=== PATIENT | female | born 1935 | race Caucasian/White ===

== ENCOUNTER 2016-07-22 20:28 | Emergency (ER) | payer OTHER ==
[~2016-07-22] VITALS: Ht 160 cm; Wt 83.9 kg
[~2016-07-22 20:28] MED LIST: AMLODIPINE BESY10 M1 PO; CRESTOR10 M1 PO; FLU VACCINE 0.0.5 ML IM; LIDODERM 5% PAT1 PAT TOP; LISINOPRIL-HCT1 EAC1 PO; METOPROLOL SUCC50 MG PO; MOBIC7.5 MG PO; NAPROSYN500 M1 PO; PROTONIX 40MG T40 MG PO; TOPROL XL 25MG25 MG PO
[2016-07-22 20:45] VITALS: BP 157/73
--- NOTE | 2016-07-22 21:13 | ED GI/GU/ABDOMINAL COMPLAINT ---
History of Present Illness General Chief Complaint: Abdominal Pain/Flank Pain Stated Complaint: ABD PAIN Source: patient, family, old records Exam Limitations: language barrier Vital Signs & Intake/Output Vital Signs & Intake/Output Vital Signs Date Time Temp Pulse Resp B/P B/P Pulse O2 O2 Flow FiO2 Mean Ox Delivery Rate 07/22 2044 100.5 91 20 157/73 94 Room Air Allergies Coded Allergies: NO KNOWN ALLERGIES (04/29/13) Reconcile Medications Amlodipine Besylate 10 MG TABLET 1 TAB PO DAILY BP (Reported) Lisinopril/Hydrochlorothiazide (Lisinopril-Hctz 20-25 MG Tab) 20 MG-25 MG TABLET 1 TAB PO DAILY BP (Reported) Metoprolol Succinate 50 MG TAB.ER.24H 1 TAB PO DAILY HEART/BP (Reported) Rosuvastatin Calcium (Crestor) 10 MG TABLET 1 TAB PO DAILY CHOLESTEROL ( Reported) Triage Note: PT IS FAROESE SPEAKING, SON INTERPRETING TO ED C/O EPIGASTRIC PAIN THAT WRAPS TO RT SIDE. STARTED YESTERDAY, GOT A LITTLE BETTER, WORSE TODAY. DENIES N/V/D. [facility] OF [facility] Triage Nurses Notes Reviewed? yes LMP (ages 10-50): post menopausal ? n Is pt currently ? No Onset: yesterday Duration: day(s):, constant, continues in ED, getting worse Timing: recent history Quality/Severity: moderate, stabbing Location: epigastric Radiation: back Prior Abdominal Problems: similar symptoms Past Sexual History: Unobtainable at this time Sexually Active: No Modifying Factors: Worsens With: palpation. Associated Symptoms: abdominal pain HPI: 1 day prior to admission patient complains of epigastric pain sharp constant radiating to the right upper quadrant increasing severity. She denies fever chills nausea vomiting diarrhea chest pain cough shortness of breath headache dysuria rash bleeding. Past History Travel History Traveled to [place] past 21 day No Medical History Any Pertinent Medical History? 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 No Review of Systems Review of Systems Constitutional: Reports: no symptoms. EENTM: Reports: no symptoms. Respiratory: Reports: no symptoms. Cardiovascular: Reports: no symptoms. GI: Reports: see HPI, abdominal pain. Genitourinary: Reports: no symptoms. Musculoskeletal: Reports: no symptoms. Skin: Reports: no symptoms. Neurological/Psychological: Reports: no symptoms. Hematologic/Endocrine: Reports: no symptoms. Immunologic/Allergic: Reports: no symptoms. All Other Systems: Reviewed and Negative Physical Exam Physical Exam General Appearance: well developed/nourished, alert, awake, anxious, moderate distress, obese Head: atraumatic, normal appearance Eyes: Bilateral: normal appearance, PERRL, EOMI, normal inspection. Ears, Nose, Throat, Mouth: hearing grossly normal, moist mucous membrane Neck: normal inspection, supple, full range of motion, normal alignment Respiratory: normal breath sounds, chest non-tender, no respiratory distress, quiet respiration, lungs clear Cardiovascular: regular rate/rhythm, normal peripheral pulses, norml femoral pulses equa Peripheral Pulses: 4+ carotid (R), 4+ carotid (L) Gastrointestinal: normal bowel sounds, soft, no organomegaly, tenderness ( epigastric) Back: normal inspection, normal range of motion, no vertebral tenderness Extremities: normal range of motion, no ligament instability Neurologic/Psych: no motor/sensory deficits, awake, alert, oriented x 3, normal gait, normal mood/affect, tube handler II-XII 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 No Severe Sepsis Present: No Septic Shock Present: No Progress Differential Diagnosis: diverticulitis, gastritis, pancreatitis, PUD/GERD Plan of Care: Orders Procedure Date/time Status Add-on Test (ER Only) 07/22 2326 Active URINALYSIS 07/22 2101 Complete TROPONIN LEVEL 07/22 2101 Complete LIPASE 07/22 2101 Complete COMPREHENSIVE METABOLIC PANEL 07/22 2101 Complete CBC WITHOUT DIFFERENTIAL 07/22 2101 Complete EKG 07/23 2031 Active Laboratory Tests 07/22/162230: Urinalysis MANY H, Urine Color YEL, Urine Clarity HAZY H, Urine pH 7.0, Ur Specific Clutier 1.015, Urine Protein NEG, Urine Ketones NEG, Urine Nitrite NEG, Urine Bilirubin NEG, Urine Urobilinogen 1.0, Ur Leukocyte Esterase NEG, Ur Microscopic SEDIMENT EXAMINED, Urine RBC 1-3, Urine WBC 1-3 H, Ur Epithelial Cells RARE, Urine Bacteria FEW H, Urine Mucus RARE, Urine Hemoglobin SMALL H, Urine Glucose NEG 07/22/162108: Anion Gap 14, Estimated GFR > 60, BUN/Creatinine Ratio 20.0, Glucose 158 H, Calcium 9.6, Total Bilirubin 4.2 H, AST 906 H, ALT 519 H, Alkaline Phosphatase 233 H, Troponin I < 0.01, Total Protein 7.4, Albumin 4.7, Globulin 2.7, Albumin/Globulin Ratio 1.7, Lipase 107, CBC w Diff NO MAN DIFF REQ, RBC 4.57, MCV 89.1, MCH 30.0, RDW 13.6, MPV 8.1, Gran % 83.8 H, Lymphocytes % 9.0 L, Monocytes % 6.0, Eosinophils % 0.9, Basophils % 0.3, Absolute Granulocytes 6.5, Absolute Lymphocytes 0.7 L, Absolute Monocytes 0.5, Absolute Eosinophils 0.1, Absolute Basophils 0, PUBS MCHC 33.6 Diagnostic Imaging: Viewed by Me: Radiology Read, CT Scan. Discussed w/RAD: Radiology Read, CT Scan. Radiology Impression: No acute abnormality CT scan abdomen pelvis. Diffuse fatty change of liver. Status post cholecystectomy. Diverticulosis of colon but no acute change of the bowel. CXR Impression: no acute abnormality, no infiltrates Initial ED EKG: normal axis, normal intervals, normal p-waves, normal QRS complex, normal sinus rhythm, no ST T wave changes Prior EKG: unchanged Rhythm Strip: normal sinus rhythm Departure Departure Time of Disposition: 2329 Disposition: HOME OR SELF CARE Condition: Stable Clinical Impression Primary Impression: Transaminitis Secondary Impressions: Epigastric abdominal pain Referrals: KALEIGH SHAH,LYUBOV Mullins (PCP/Family) Departure Forms: Customer Survey General Discharge Information Prescriptions: Current Visit Scripts Hyoscyamine Sulfate (Levsin-Sl) 1-2 TAB SL Q4P PRN abdominal pain #30 TAB Tramadol HCl (Ultram) 1-2 TAB PO Q6PRN PRN severe pain #30 TAB
[2016-07-22] MEDS ORDERED: METOPROLOL SUCC50 M2 PO (21:14)
[2016-07-22 21:16] LABS: ABSOLUTE BASOPHIL COUNT 0 /CUMM (0.0-0.2); ABSOLUTE EOSINOPHIL COUNT 0.1 /CUMM (0.0-0.7); ABSOLUTE GRANULOCYTE CT 6.5 /CUMM (1.4-6.5); ABSOLUTE LYMPH COUNT 0.7 /CUMM (1.2-3.4); ABSOLUTE MONOCYTE COUNT 0.5 /CUMM (0.10-0.60); BASOPHIL % 0.3 % (0.0-2.0); EOSINOPHIL % 0.9 % (0-5); GRANULOCYTE % 83.8 % (42.2-75.2); HEMATOCRIT 40.7 % (37-47); MEAN CORPUSCULAR HGB CONC 33.6 G/DL (33.0-37.0); MEAN CORPUSCULAR VOLUME 89.1 FL (81.0-99.0); MEAN PLATELET VOLUME 8.1 FL (7.4-10.4); PLATELET COUNT 196 /CUMM (130-400); RBC DISTRIBUTION WIDTH 13.6 % (11.5-14.5); RED BLOOD CELL CT 4.57 /CUMM (4.20-5.40); WHITE BLOOD CELL COUNT 7.7 /CUMM (4.8-10.8)
--- NOTE | 2016-07-22 22:27 | RADIOLOGY REPORT ---
EXAMINATION: XR CHEST CLINICAL INFORMATION: Epigastric pain. Fever. COMPARISON: 10/04/2015 TECHNIQUE: 2 views of the chest were obtained. FINDINGS: The lungs are well expanded. No consolidation, edema, or effusion. No pneumothorax. The cardiomediastinal silhouette is unchanged, with a calcified aorta. Degenerative changes of the spine. IMPRESSION: No acute pulmonary findings.
--- NOTE | 2016-07-22 23:01 | CT SCAN REPORT ---
EXAMINATION: CT ABDOMEN AND PELVIS WITH CONTRAST CLINICAL INFORMATION: Epigastric pain. Fever. Elevated LFTs. COMPARISON: CT scan abdomen pelvis 02/23/2014 TECHNIQUE: Multidetector volumetric imaging was performed of the abdomen and pelvis before and after the IV administration of 95 mL of Optiray 320 intravenous contrast. Sagittal and coronal reformatted images were obtained on the technologist's workstation. DLP: 534.59 mGy-cm FINDINGS: LUNG BASES: The visualized lung bases are unremarkable. LIVER, GALLBLADDER, AND BILIARY TREE: Amrit's configuration of liver with the elongated right lobe. Right lobe of liver measures 23 cm superior inferior. There is low attenuation of liver parenchyma due to fatty change. No focal liver lesion. Status post cholecystectomy. The extrahepatic CBD at the rohan hepatis has a diameter of 9 mm and tapers to the ampulla with no calcified stone within the duct. PANCREAS: Unremarkable. SPLEEN: Unremarkable. ADRENAL GLANDS: Unremarkable. KIDNEYS AND URETERS: The kidneys are normal in size, shape, and attenuation. No hydronephrosis, hydroureter, or calculi seen. No perinephric stranding. BLADDER: Unremarkable. GASTROINTESTINAL TRACT: Diverticulosis of the colon without diverticulitis. No acute change of the bowel. No bowel obstruction. No bowel wall thickening or edema. The appendix is normal. Small bowel loops are normal. ABDOMINAL WALL: Fat-containing right spigelian hernia low right pelvis with defect in the wall measuring 1.9 cm transverse axial imaging 578 (3). LYMPH NODES: Normal. VASCULAR: Unremarkable. PELVIC VISCERA: Uterus is anteverted. No adnexal abnormality. OSSEOUS STRUCTURES: Degenerative spondylosis of the spine. Vacuum disc phenomena L4-L5. Disc height narrowing L2-L3 and L3-L4 with endplate sclerosis and spurring. Multilevel facet joint arthrosis of the spine. Bridging spurs of the lower thoracic upper lumbar spine. IMPRESSION: No acute abnormality CT scan abdomen pelvis. Diffuse fatty change of liver. Status post cholecystectomy. Diverticulosis of colon but no acute change of the bowel.
[2016-07-22] MEDS ORDERED: ULTRAM50 M1 PO (23:31)
[2016-07-22] MEDS ORDERED: LEVSIN-SL0.125 MG SL (23:31)
== END 2016-07-23 00:21 ==
LOC: ERH 20:28
PROVIDERS: Emergency Medicine
DX: R74.0 Nonspecific elevation of levels of transaminase and lactic acid dehydrogenase [LDH] (principal); R10.13 Epigastric pain
CPT/HCPCS: 74177; 81001; 93005; 93010; 96374; J0131